=== PATIENT | male | born 1955 | race Caucasian/White ===

== ENCOUNTER → 2016-12-07 | Outpatient (CLI) | payer BC | LOC: RAD 14:06 | PROVIDERS: ATTEND Family Medicine | DX: M54.18 Radiculopathy, sacral and sacrococcygeal region (principal) | CPT/HCPCS: 72170; 72220 ==

== ENCOUNTER → 2016-12-10 | Outpatient (REF) | payer BC | LOC: LAB 09:40 | PROVIDERS: ATTEND Family Medicine | DX: Z53.9 Procedure and treatment not carried out, unspecified reason (principal) ==

== ENCOUNTER → 2016-12-13 | Outpatient (CLI) | payer BC | LOC: RAD 10:20 | PROVIDERS: ATTEND Family Medicine | DX: M54.18 Radiculopathy, sacral and sacrococcygeal region (principal); R97.20 Elevated prostate specific antigen [PSA] | CPT/HCPCS: 78306; A9503 ==